=== PATIENT | male | born 1945 | race Caucasian/White ===

== ENCOUNTER 2016-10-23 08:02 | Day surgery (SDC) | payer MEDICARE, MEDICAID ==
[~2016-10-23] VITALS: Ht 180.3 cm; Wt 83.8 kg
[2016-10-23] MEDS ORDERED: SODIUM CHLORIDE 0.9% 1,000 ML IV SCH (09:19)
[2016-10-23 09:20] VITALS: BP 107/68
[2016-10-23] MEDS ORDERED: CHOL2000 PO (09:22)
[2016-10-23] MEDS ORDERED: SEVE800T8 PO (09:22)
[2016-10-23] MEDS ORDERED: PLEASE ENTER ALLERGIES MC SCH ×2 (09:30)
[2016-10-23] MEDS ORDERED: HEPARIN 1,000 UNITS/ML, 10ML ONE (10:21)
[2016-10-23] MEDS ORDERED: FENTANYL PF 100 MCG/2ML ONE ×2 (10:36→11:37)
[2016-10-23] MEDS ORDERED: DEXAMETHASONE 4 MG/ML, 1ML ONE (10:38)
[2016-10-23] MEDS ORDERED: PROPOFOL 10 MG/ML, 20ML ONE (10:38)
[2016-10-23] MEDS ORDERED: CEFAZOLIN 1,000 MG ONE (10:38)
[2016-10-23] MEDS ORDERED: ONDANSETRON 2MG/ML, 2ML ONE (10:38)
[2016-10-23] MEDS ORDERED: ROCURONIUM 10 MG/ML ONE (10:38)
[2016-10-23] MEDS ORDERED: HYDROmorphone 1 MG/ML, 1ML IV PRN (11:00)
[2016-10-23] MEDS ORDERED: OXYcodone 5 MG/5 ML ORAL.SOL UDC PO PRN (11:00)
[2016-10-23] MEDS ORDERED: FENTANYL PF 100 MCG/2ML IV PRN (11:00)
[2016-10-23] MEDS ORDERED: PROMETHAZINE 25 MG/ML, 1ML IV PRN (11:00)
[2016-10-23] MEDS ORDERED: MEPERIDINE/PF 25MG/0.5ML IVPush PRN (11:00)
[2016-10-23] MEDS ORDERED: ACETAMINOPHEN 325 MG TABLET PO PRN (11:00)
[2016-10-23] MEDS ORDERED: LABETALOL 5MG/ML, 20ML IV PRN (11:00)
[2016-10-23] MEDS ORDERED: hydrALAzine 20 MG/ML, 1ML IV PRN (11:00)
[2016-10-23] MEDS ORDERED: ONDANSETRON 2MG/ML, 2ML IVPush PRN (11:00)
[2016-10-23] MEDS ORDERED: ALBUTEROL SULFATE 2.5 MG/3 ML NPPB PRN (11:00)
[2016-10-23] MEDS ORDERED: MIDAZOLAM 1 MG/ML, 2ML IV PRN (11:00)
[2016-10-23] MEDS ORDERED: OXYcodone 5 MG/5 ML ORAL.SOL UDC ONE (11:37)
== END 2016-10-23 13:35 ==
LOC: OUT 08:02
PROVIDERS: ATTEND Surgery Vascular Surgery
DX: N18.6 End stage renal disease (principal); Z99.2 Dependence on renal dialysis
CPT/HCPCS: 36415; 36821; 80047; 93005; J0690; J1100; J1644; J2405; J2704; J3010